=== PATIENT | male | born 1985 | race American Indian/Alaskan Native ===

== ENCOUNTER 2020-11-03 18:26 | Emergency (ER) | payer SELFPAY ==
[2020-11-03 19:07] VITALS: BP 152/101
--- NOTE | 2020-11-03 19:14 | Event Note ---
ED Screening Note Date of service: 11/03/20 Time: 19:13 ED Screening Note: 35-year-old male presents the emergency department chief complaint of nausea, vomiting, diarrhea, generalized body aches, headache, fever, sore throat, generalized malaise over the past 2 days. Unsure of any sick contacts. Has past medical history of low thyroid. This initial assessment/diagnostic orders/clinical plan/treatment(s) is/are subject to change based on patients health status, clinical progression and re- assessment by fellow clinical providers in the ED. Further treatment and workup at subsequent clinical providers discretion. Patient/guardian urged not to elope from the ED as their condition may be serious if not clinically assessed and managed. Initial orders include: CBC, CMP, lipase, urinalysis, chest x-ray
[2020-11-03 19:49] LABS: Basophils % (Auto) 0.4 % (0.0-1.8); Eosinophils # (Auto) 0.1 K/mm3 (0.0-0.4); Hematocrit 40.8 % (35.5-45.6); Hemoglobin 13.7 gm/dl (11.8-15.2); Lymphocytes # (Auto) 0.6 K/mm3 (1.2-5.4); Lymphocytes % (Auto) 6.7 % (13.4-35.0); Mean Corpuscular HGB Conc 34 % (32-34); Mean Corpuscular Volume 79 fl (84-94); Monocytes # (Auto) 0.8 K/mm3 (0.0-0.8); Monocytes % (Auto) 8.4 % (0.0-7.3); Platelet Count 234 K/mm3 (140-440); Red Blood Count 5.15 M/mm3 (3.65-5.03); Red Cell Distribution Width 13.3 % (13.2-15.2)
[2020-11-03 19:56] LABS: Alanine Aminotransferase 26 units/L (7-56); Albumin 4.2 g/dL (3.9-5); BUN/Creatinine Ratio 8; Blood Urea Nitrogen 8 mg/dL (9-20); Calcium 8.8 mg/dL (8.4-10.2); Hemolysis Index 9
--- NOTE | 2020-11-03 20:18 | XRay Report ---
CHEST 2 VIEWS INDICATION / CLINICAL INFORMATION: cough, weakness. COMPARISON: None available. FINDINGS: SUPPORT DEVICES: None. HEART / MEDIASTINUM: No significant abnormality. LUNGS / PLEURA: No significant pulmonary or pleural abnormality. No pneumothorax. ADDITIONAL FINDINGS: No significant additional findings. IMPRESSION: 1. No acute findings. Signer Name: Luis Haji MD Signed: 11/03/2020 8:14 PM Workstation Name: [id number]
--- NOTE | 2020-11-03 20:26 | Emergency Department Report ---
ED General Adult HPI - General Chief complaint: Nausea/Vomiting/Diarrhea Stated complaint: COVID SYM/FLU PUI?: Yes Time Seen by Provider: 11/03/20 19:02 Source: patient Mode of arrival: Ambulatory Limitations: No Limitations - History of Present Illness Initial comments: 35-year-old male presents the emergency department chief complaint of nausea, vomiting, diarrhea, generalized body aches, headache, fever, sore throat, genera lized malaise over the past 2 days. Unsure of any sick contacts. Has past medical history of low thyroid. - Related Data Previous Rx's Medication Instructions Recorded Last Taken Type Azithromycin [Zithromax Z-QIANA] 0 mg PO DAILY #6 tab 04/19/20 Unknown Rx Butalb/Acetamin/Caff 50-325-40 1 - 2 tab PO Q8HR PRN #14 tablet 04/19/20 Unknown Rx [Fioricet 50-325-40] Azithromycin [Zithromax Z-QIANA] 250 mg PO ONCE #1 tablet 11/03/20 Unknown Rx Butalb/Acetaminophen/Caffeine 1 cap PO Q6HR PRN #12 cap 11/03/20 Unknown Rx [Fioricet 50-300-40 mg CAP] Prednisone [predniSONE 10 mg 10 mg PO .TAPER #1 tab.ds.pk 11/03/20 Unknown Rx (6-Day Pack, 21 Tabs)] Promethazine Dm (Nf) [Phenergan DM 5 ml PO Q6H PRN #120 11/03/20 Unknown Rx 6.25-15 mg/5 ml] Allergies Allergy/AdvReac Type Severity Reaction Status Date / Time aspirin Allergy Itching Verified 04/19/20 18:36 ED Review of Systems ROS: Stated complaint: COVID SYM/FLU Other details as noted in HPI Comment: All other systems reviewed and negative Constitutional: denies: chills, fever Eyes: denies: eye pain, eye discharge, vision change ENT: as per HPI, congestion. denies: ear pain, throat pain Respiratory: see HPI, cough. denies: shortness of breath, wheezing Cardiovascular: denies: chest pain, palpitations Endocrine: no symptoms reported Gastrointestinal: as per HPI, nausea, vomiting, diarrhea. denies: abdominal pain Genitourinary: denies: urgency, dysuria Musculoskeletal: as per HPI, myalgia. denies: back pain, joint swelling, arth ralgia Skin: denies: rash, lesions Neurological: as per HPI, headache. denies: weakness, paresthesias Psychiatric: denies: anxiety, depression Hematological/Lymphatic: denies: easy bleeding, easy bruising ED Past Medical Hx - Past Medical History Hx Hypertension: Yes Hx Asthma: Yes Additional medical history: History of hyperthyroidism - Surgical History Past Surgical History?: No - Social History Smoking Status: Never Smoker Substance Use Type: Alcohol - Medications Home Medications: Home Medications Medication Instructions Recorded Confirmed Last Taken Type Azithromycin [Zithromax Z-QIANA] 0 mg PO DAILY #6 tab 04/19/20 Unknown Rx Butalb/Acetamin/Caff 50-325-40 1 - 2 tab PO Q8HR PRN #14 tablet 04/19/20 Unknown Rx [Fioricet 50-325-40] Azithromycin [Zithromax Z-QIANA] 250 mg PO ONCE #1 tablet 11/03/20 Unknown Rx Butalb/Acetaminophen/Caffeine 1 cap PO Q6HR PRN #12 cap 11/03/20 Unknown Rx [Fioricet 50-300-40 mg CAP] Prednisone [predniSONE 10 mg 10 mg PO .TAPER #1 tab.ds.pk 11/03/20 Unknown Rx (6-Day Pack, 21 Tabs)] Promethazine Dm (Nf) [Phenergan DM 5 ml PO Q6H PRN #120 11/03/20 Unknown Rx 6.25-15 mg/5 ml] ED Physical Exam - General Limitations: No Limitations General appearance: alert, in no apparent distress - Head Head exam: Present: atraumatic, normocephalic - Eye Eye exam: Present: normal appearance, PERRL, EOMI Pupils: Present: normal accommodation - ENT ENT exam: Present: normal exam, normal orophraynx, mucous membranes moist - Neck Neck exam: Present: normal inspection, full ROM. Absent: tenderness, meningismus - Respiratory Respiratory exam: Present: normal lung sounds bilaterally. Absent: respiratory distress, wheezes, rales, rhonchi, stridor - Cardiovascular Cardiovascular Exam: Present: regular rate, normal rhythm, normal heart sounds. Absent: systolic murmur, diastolic murmur, rubs, gallop - GI/Abdominal GI/Abdominal exam: Present: soft, normal bowel sounds. Absent: distended, tenderness, guarding, rebound - Rectal Rectal exam: Present: deferred - Extremities Exam Extremities exam: Present: normal inspection, full ROM, normal capillary refill. Absent: tenderness, calf tenderness (negative sahara sign bilaterally ) - Back Exam Back exam: Present: normal inspection, full ROM. Absent: tenderness, CVA tenderness (R), CVA tenderness (L), muscle spasm - Neurological Exam Neurological exam: Present: alert, oriented X3, CN II-XII intact, normal gait - Psychiatric Psychiatric exam: Present: normal affect, normal mood - Skin Skin exam: Present: warm, dry, intact, normal color. Absent: rash ED Course Vital Signs 11/03/20 19:02 Temperature 99.8 F H Pulse Rate 99 H Respiratory 18 Rate Blood Pressure 152/101 O2 Sat by Pulse 98 Oximetry ED Medical Decision Making - Lab Data Result diagrams: 11/03/20 19:24 11/03/20 19:24 Lab Results 11/03/20 11/03/20 Range/Units 19:24 19:24 WBC 9.2 (4.5-11.0) K/mm3 RBC 5.15 H (3.65-5.03) M/mm3 Hgb 13.7 (11.8-15.2) gm/dl Hct 40.8 (35.5-45.6) % MCV 79 L (84-94) fl MCH 27 L (28-32) pg MCHC 34 (32-34) % RDW 13.3 (13.2-15.2) % Plt Count 234 (140-440) K/mm3 Lymph % (Auto) 6.7 L (13.4-35.0) % Cascade % (Auto) 8.4 H (0.0-7.3) % Eos % (Auto) 1.0 (0.0-4.3) % Baso % (Auto) 0.4 (0.0-1.8) % Lymph # (Auto) 0.6 L (1.2-5.4) K/mm3 Cascade # (Auto) 0.8 (0.0-0.8) K/mm3 Eos # (Auto) 0.1 (0.0-0.4) K/mm3 Baso # (Auto) 0.0 (0.0-0.1) K/mm3 Seg Neutrophils % 83.5 H (40.0-70.0) % Seg Neutrophils # 7.7 (1.8-7.7) K/mm3 Sodium 138 (137-145) mmol/L Potassium 4.1 (3.6-5.0) mmol/L Chloride 104.2 (98-107) mmol/L Carbon Dioxide 28 (22-30) mmol/L Anion Gap 10 mmol/L BUN 8 L (9-20) mg/dL Creatinine 1.0 (0.8-1.3) mg/dL Estimated GFR > 60 ml/min BUN/Creatinine Ratio 8 % Glucose 92 (75-100) mg/dL Calcium 8.8 (8.4-10.2) mg/dL Total Bilirubin 0.50 (0.1-1.2) mg/dL AST 26 (5-40) units/L ALT 26 (7-56) units/L Alkaline Phosphatase 57 (35-129) units/L Total Protein 7.8 (6.3-8.2) g/dL Albumin 4.2 (3.9-5) g/dL Albumin/Globulin Ratio 1.2 % Lipase 12 L (13-60) units/L - Radiology Data Radiology results: report reviewed XRay Report Signed Patient: CHRISTIAN VILLARREAL MR#: [id number] : 1985 Acct:[id number] Age/Sex: 35 / M ADM Date: 11/03/20 Loc: ED Attending Dr: Ordering Physician: AMIE LEE Date of Service: 11/03/20 Procedure(s): XR chest routine 2V Accession Number(s): [id number] cc: AMIE LEE Fluoro Time In Minutes: CHEST 2 VIEWS INDICATION / CLINICAL INFORMATION: cough, weakness. COMPARISON: None available. FINDINGS: SUPPORT DEVICES: None. HEART / MEDIASTINUM: No significant abnormality. LUNGS / PLEURA: No significant pulmonary or pleural abnormality. No pneumothorax. ADDITIONAL FINDINGS: No significant additional findings. IMPRESSION: 1. No acute findings. Signer Name: Luis Haji MD Signed: 11/03/2020 8:14 PM Workstation Name: [id number] Transcribed By: CW Dictated By: ANDRZEJ HAJI MD Electronically Authenticated By: ANDRZEJ HAJI MD Signed Date/Time: 11/03/202013 - Medical Decision Making Patient nontoxic in no acute distress. Vital signs are stable. He is PERC negative and low risk by Wells criteria for PE. Patient's labs were relatively normal. Chest x-ray is unremarkable. The patient symptoms are consistent with a viral syndrome and due to the ongoing global pandemic I think this is likely secondary to COVID-19 versus influenza. Recommended outpatient follow-up with primary care doctor. Tylenol Motrin alternating every 3 hours. Increase fluid hydration. I will give him Fioricet for his headache, Phenergan for his nausea, steroids and azithromycin and outpatient follow-up. He verbalized understand the diagnosis, treatment and follow-up instructions and all his questions were answered. I also recommended per the CDC guidelines that he wrote self quarantine for 14 days from the onset of his symptoms. - Differential Diagnosis covid-19, influenza, viral syndrome Critical care attestation.: If time is entered above; I have spent that time in minutes in the direct care of this critically ill patient, excluding procedure time. ED Disposition Clinical Impression: Acute viral syndrome Disposition: DC- TO HOME OR SELFCARE Is pt being admited?: No Condition: Stable Prescriptions: Butalb/Acetaminophen/Caffeine [Fioricet 50-300-40 mg CAP] 1 cap PO Q6HR PRN #12 cap PRN Reason: Headache Promethazine Dm (Nf) [Phenergan DM 6.25-15 mg/5 ml] 5 ml PO Q6H PRN #120 PRN Reason: Cough Prednisone [predniSONE 10 mg (6-Day Pack, 21 Tabs)] 10 mg PO .TAPER #1 tab.ds.pk Azithromycin [Zithromax Z-QIANA] 250 mg PO ONCE #1 tablet Referrals: [facility] [Provider Group] - 3-5 Days Forms: Work/School Release Form(ED) Time of Disposition: 20:24
== END 2020-11-03 19:38 | disposition home or self-care (01) ==
LOC: ED 18:26
DX: B34.9 Viral infection, unspecified (principal); I10 Essential (primary) hypertension; G40.909 Epilepsy, unspecified, not intractable, without status epilepticus; Z20.828 Contact with and (suspected) exposure to other viral communicable diseases; Z79.899 Other long term (current) drug therapy; Z88.6 Allergy status to analgesic agent
CPT/HCPCS: 36415; 71046; 80053; 83690; 85025; 99283